=== PATIENT | male | born 1985 | race Caucasian/White ===

== ENCOUNTER 2020-02-04 06:21 | Emergency (ER) | payer BC ==
[~2020-02-04] VITALS: Ht 172.7 cm; Wt 99.8 kg
[2020-02-04 06:27] VITALS: BP_SYST 101
--- NOTE | 2020-02-04 06:27 | NUR ---
Patient to ER bed 5 to gown for evaluation. Side rails up. Report given to FRANCK PADRON.
--- NOTE | 2020-02-04 06:30 | NUR ---
pt a&o x4 c/o of vomiting blood four times since 4am. pt reports drinking 6 beers and a couple of shots, smoking weed, and eating lee in the box last night. pt denies feeling nauseous or having pain at this moment.
--- NOTE | 2020-02-04 06:32 | NUR ---
ER Dr. Cleaning at bedside examining patient.
[2020-02-04] MEDS ORDERED: NACL 0.9% 1,000 ML IV ONE (06:38)
[2020-02-04] MEDS ORDERED: ONDANSETRON HCL 4 MG/2 ML VIAL IVP ONE (06:45)
[2020-02-04] MEDS ORDERED: PANTOPRAZOLE SODIUM 40 MG/VIAL (PROTONIX) IVP ONE (06:45)
--- NOTE | 2020-02-04 06:47 | NUR ---
# 20 gauge angiocath placed to RAC. Use of asceptic technique. Opsite placed over site. Blood return noted. Blood, blood cultures, lactic for lab drawn from site. Flushed with 10 cc of normal saline. No evidence of infiltration noted. Patient tolerated well.
--- NOTE | 2020-02-04 07:13 | NUR ---
report given to VITO delgado for continuation of care.
--- NOTE | 2020-02-04 07:30 | NUR ---
Assumed care of patient, report received from VITO Miramontes. Pt currently resting in bed, will continue to monitor.
[2020-02-04 07:50] LABS: BASOPHILS % (AUTO) 0.5 % (0.0-2.0); EOSINOPHILS # (AUTO) 0.1 K/uL (0.0-0.4); EOSINOPHILS % (AUTO) 1.2 % (0.0-4.0); HEMATOCRIT 42.5 % (36-54); HEMOGLOBIN 14.4 g/dL (14.0-18.0); LYMPHOCYTES # (AUTO) 2.3 K/uL (1.0-5.5); LYMPHOCYTES % (AUTO) 24.1 % (20.5-51.5); MEAN CORPUSCULAR HEMOGLOBIN 30 pg (27-31); MEAN CORPUSCULAR HGB CONC 34 % (32-36); MEAN CORPUSCULAR VOLUME 89 fL (79.0-98.0); MONOCYTES # (AUTO) 0.4 K/uL (0.0-1.0); MONOCYTES % (AUTO) 4.6 % (1.7-9.3); NEUTROPHILS # (AUTO) 6.6 K/uL (1.8-7.7); NEUTROPHILS % (AUTO) 69.6 % (40.0-70.0); PLATELET COUNT (AUTO) 255 K/uL (130-430); RED BLOOD CELL COUNT(AUTO) 4.76 MIL/uL (4.2-6.2); RED CELL DISTRIBUTION WIDTH 12.7 % (9.0-15.0); WHITE BLOOD COUNT (AUTO) 9.5 K/uL (4.8-10.8)
[2020-02-04 08:03] LABS: CALCIUM 8.2 mg/dL (8.4-11.0); CREATININE 1.19 mg/dL (0.55-1.30); POTASSIUM 3.7 mmol/L (3.5-5.1)
[2020-02-04 08:07] LABS: PROTHROMBIN TIME 9.9 SECS (9.5-12.5)
[2020-02-04 08:09] LABS: ALBUMIN 3.6 g/dL (3.4-4.8); TOTAL BILIRUBIN 0.7 mg/dL (0.0-1.0)
--- NOTE | 2020-02-04 09:20 | NUR ---
Patient given written and verbal discharge instructions and verbalizes understanding. ER MD discussed with patient the results and treatment provided. Patient in stable condition. ID arm band removed. IV catheter removed intact and dressing applied, no active bleeding. Rx of Pepcid given. Patient educated on pain management and to follow up with PMD. Pain Scale 0. Opportunity for questions provided and answered. Medication side effect fact sheet provided.
[2020-02-04 09:22] VITALS: BP_SYST 101
== END 2020-02-04 09:20 | disposition home or self-care (01) ==
LOC: SED 06:21
DX: K29.20 Alcoholic gastritis without bleeding (principal); F10.10 Alcohol abuse, uncomplicated
CPT/HCPCS: 36415; 80053; 83690; 85025; 85610; 85730; 96361; 96374; 96375; 99284; C9113; J2405; J7030